=== PATIENT | female | born 1995 | race Caucasian/White ===

== ENCOUNTER 2019-11-24 19:49 | Emergency (ER) | payer OTHER, SELFPAY ==
[2019-11-24 19:51] VITALS: BP 107/50; PULSE 69; RESP 18; TEMP 37.2; O2SAT 100; BMI 20.1
--- NOTE | 2019-11-24 20:09 | RAD_ITS ---
STUDY: X-RAY - LEFT HAND, ATTENTION FIFTH FINGER REASON FOR EXAM: Female, 24 years old. Laceration. TECHNIQUE: 3 view(s) of the finger were obtained. COMPARISON: None. FINDINGS: Normal metacarpal head. Normal metacarpophalangeal joint. Normal proximal phalanx. Normal middle phalanx. There is amputation of the tuft of the distal phalanx with associated soft tissue at the tip of the finger. Normal proximal interphalangeal joint. Normal distal interphalangeal joint. RAD/Finger(s) Min 2 Views IMPRESSION: Amputation of the tip of the fifth digit including the tuft of the distal phalanx. Electronically Signed: Donavan Swenson DO at 20:42 EDT Tel [phone], Service support ,
--- NOTE | 2019-11-24 20:13 | ED.VIS.GEN ---
History of Present Illness Chief Complaint: Laceration Informant: Patient Onset: Today Narrative: [id number] female presents with left fifth digit injury occurring 2 hours prior to arrival. 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 She states she did start vaccinations as a child however states this may have been stopped. She is not on any anticoagulation medicines. She placed a dressing on it right away. Bleeding is controlled with the dressing. She states she does not want additional vaccinations. Denies any allergies. Past Medical History - Allergies and Home Meds Allergies/Adverse Reactions: Allergies No Known Allergies Allergy (Verified 11/24/19 19:50) Primary Care Physician: Jodi Moreno [Primary Care Provider] - Dex Cook MD [STAFF PHYSICIAN] - 1 Day Past Medical History: - - Anxiety Review of Systems General: Denies: Chills, Fever, Sweats Eyes: Denies: Visual changes - bilaterally, Diplopia ENT: Denies: Rhinorrhea, Sore throat Cardiovascular: Denies: Chest pain, Palpitations Respiratory: Denies: Dyspnea, Cough, Dyspnea on exertion Gastrointestinal: Denies: Abdominal pain, Nausea, Vomiting, Diarrhea, Melena, Hematochezia Genitourinary: Denies: Dysuria, Hematuria, Frequency Musculoskeletal: Denies: Back pain, Extremity Pain Skin: Reports: Wounds. Denies: Rash Neurological: Denies: Headache, Weakness, Numbness Physical Exam Vital Signs/Narrative: Vital Signs Temp Pulse Resp BP Pulse Ox 11/24/19 19:51 98.9 F 69 18 107/50 L 100 Inital Vital Signs reviewed: Yes General: Well nourished, Well developed, No Acute Distress Head: Normocephalic, Atraumatic Eyes: Perrl, EOMI ENT: Moist mucous membranes, No rhinorrhea Neck: Supple, Nontender Cardiovascular: Regular rate, Regular rhythm, No murmurs Respiratory: No distress, CTA bilaterally, Chest nontender Abdomen: Soft, Nontender, Nondistended, Normal bowel sounds Back: Nontender, Normal Inspection Extremities: No edema, - - Left hand: Dressing noted on the distal aspect of pinky. This was removed, partial amputation distal tip of phalanx with half nailbed amputated in diagonal facing radial aspect. There is also flap of tissue volar aspect approximately 1.5 cm. Bleeding is controlled. No bony exposure noted. Full range of motion of the DIP joint. Skin: No rash, - - See above extremity Neurological: Alert, Oriented x3, Cranial nerves II-XII grossly intact, Normal Strength, Normal Sensation Psychological: Normal affect, Normal Mood Diagnostic/Tx/Re-eval Clinical Impression(s) from Imaging Studies Finger X-Ray 11/24/19 20:09 IMPRESSION: Amputation of the tip of the fifth digit including the tuft of the distal phalanx. Electronically Signed: Donavan SwensonDO at 20:42 EDT Tel [phone], Service support , - Medical Decision Making Patient with complex partial amputation with laceration to the finger with nailbed involvement. Patient declined any vaccinations in the ED. She declined IV antibiotics or IM antibiotics. She agreed with oral antibiotics therefore Keflex was started. Discussed with patient and on her request with her father over the phone with plan repair in the ED. They agreed. This was performed total of 6 sutures for flap and amputation repair with additional 1 suture for nail securing. I did speak with Dr. Cook, who will see the patient tomorrow morning in the office. Keflex was filled from the ED due to time a night and dispense with the patient. All questions were answered. Procedures - Lacerations No standard instances Shape: Flap Prep: Sterile Conditions Laceration repair: - - Laceration repair: Verbal consent normal sterile conditions. After evaluation initially, 4 cc 0.5% bupivacaine used for metacarpal block. [place] was placed, wound was copiously flushed with 250 cc of normal saline. Initial flap repair using a corner stitch of 4-0 nylon for initial flap repair, two 5-0 nylon simple interrupted placed on the sides of the flap with good approximation. The nail was removed from the nailbed, amputation section was closed. Additional 4-0 nylon corner stitch was placed in the radial aspect of the wound, 2 additional 4-0 nylon simple interrupted sutures was placed to pull the flap over the tip of the finger. The nail was replaced back our nailbed, 150 simple suture placed at the corner to help secure the nail. Patient tolerated procedure well. Xeroform dressing was placed by nursing with a finger splint. ED Disposition - Plan for ED Patient: Disposition: Home or Assisted Living Diagnosis: Partial traumatic amputation of left little finger through phalanx Instructions: ED Finger Tip Amputation Open Treatment Prescriptions: Cephalexin [Keflex] 500 mg PO Q6 #40 cap Prescription Printed Referrals: Jodi Moreno [Primary Care Provider] - Dex Cook MD [STAFF PHYSICIAN] - 1 Day Additional Instructions: Call tomorrow morning to be seen in the morning in the office for evaluation. Keep dressing on. Take antibiotic as prescribed.
[2019-11-24] MEDS: Bupivacaine Mpf 0.5% 30 ML VIAL INFILT (20:20)
[2019-11-24] MEDS: Cephalexin 250 MG Capsule 500 MG PO (20:41)
[2019-11-24 23:36] VITALS: BP 97/68; PULSE 65; O2SAT 98
== END 2019-11-24 23:40 | disposition home or self-care (01) ==
PROVIDERS: Emergency Provider Emergency Medicine; PCP Family Medicine
DX: S68.127A Partial traumatic metacarpophalangeal amputation of left little finger, initial encounter (principal); W31.89XA Contact with other specified machinery, initial encounter; Y93.89 Activity, other specified; Y92.9 Unspecified place or not applicable; Y99.0 Civilian activity done for income or pay; F41.9 Anxiety disorder, unspecified
CPT/HCPCS: 11760; 12001; 73140; 99283